=== PATIENT | female | born 1990 | race Caucasian/White ===

== ENCOUNTER 2016-11-09 17:14 | Emergency (ER) | payer OTHER ==
[~2016-11-09] VITALS: Ht 149.9 cm; Wt 77.1 kg
[~2016-11-09 17:14] MED LIST: KEFLEX500 M1 PO
[2016-11-09 17:30] VITALS: BP 116/70
[2016-11-09] MEDS ORDERED: PARAGARD T 3801 EACH (19:40)
--- NOTE | 2016-11-09 20:35 | RADIOLOGY REPORT ---
EXAMINATION: LEFT ANKLE SERIES LEFT FOOT SERIES CLINICAL INFORMATION: Fracture dislocation pain. COMPARISON: None. TECHNIQUE: 3 views of the left ankle 3 views left foot FINDINGS: Ankle: The bones joints and soft tissues are normal Left foot: The bones joints and soft tissues are normal IMPRESSION: Normal x-ray series of the left ankle and left foot
--- NOTE | 2016-11-09 20:42 | ED ANKLE/FOOT INJURY COMPLAINT ---
History of Present Illness General Chief Complaint: Lower Extremity Injury Stated Complaint: LEFT ANKLE INJURY Source: patient Exam Limitations: no limitations Vital Signs & Intake/Output Vital Signs & Intake/Output Vital Signs Date Time Temp Pulse Resp B/P Pulse O2 O2 Flow FiO2 Ox Delivery Rate 11/09 1730 98.2 79 16 116/70 97 Room Air Allergies Coded Allergies: NO KNOWN ALLERGIES (08/02/11) Reconcile Medications Copper (Paragard T 380-A) 380 SQUARE MM IUD CONTROL (Reported) Triage Note: RECEIVED 26 YO FEMALE C/O LEFT ANKLE PAIN. PT REPORTS SHE TWISTED IT ABOUT 12:30 TODAY. PT ABLE TO WEIGHT BEAR AND WALK WITHOUT PROBLEM. Triage Nurses Notes Reviewed? yes : No Patient currently breastfeeds: No HPI: This patient is a 26-year-old female who presented to the emergency department today for evaluation of left ankle pain. The patient reported that she tripped today and twisted her left ankle. She reported that when she walks or puts pressure on the area of the pain gets up to an 8 out of 10. It is throbbing and nonradiating. She denied any numbness or tingling in her extremities. The patient denied any pain when she is resting. The patient denied any knee pain or hip pain. Past History Travel History Traveled to [place] past 21 day No Medical History Any Pertinent Medical History? see below for history Neurological: NONE EENT: NONE Cardiovascular: NONE Respiratory: NONE Gastrointestinal: NONE Hepatic: NONE Renal: NONE Musculoskeletal: NONE Psychiatric: NONE Endocrine: NONE Blood Disorders: NONE Cancer(s): NONE BOAT OUTFITTER/Reproductive: NONE Surgical History Surgical History: non-contributory Psychosocial History What is your primary language Syrian Tobacco Use: Current Daily Use Daily Tobacco Use Amount/Type: => 5 Cigarettes daily Family History Hx Contributory? No Review of Systems Review of Systems Constitutional: Reports: no symptoms. EENTM: Reports: no symptoms. Respiratory: Reports: no symptoms. Cardiovascular: Reports: no symptoms. GI: Reports: no symptoms. Genitourinary: Reports: no symptoms. Musculoskeletal: Reports: see HPI. Skin: Reports: no symptoms. Neurological/Psychological: Reports: no symptoms. All Other Systems: Reviewed and Negative Physical Exam Physical Exam Leg/Knee/Thigh Left: normal range of motion, normal inspection Comments: Well-developed well-nourished person in no acute distress HEENT: Head normocephalic, moist mucous membranes Neck: Supple, no lymphadenopathy Back: Normal gait Respiratory: No respiratory distress. Speaking in full sentences Left foot/ankle: No edema or overlying erythema or ecchymosis. Full range of motion at the ankle. Tenderness to palpation over the lateral malleolus. No bony or muscular deformities appreciated. Dorsalis pedis and posterior tibialis pulses 2+ and strong. Capillary refill 2 seconds Neuro: Alert and oriented x3 Psych: Mood affect normal, normal memory normal judgment. Skin: Warm and dry, no rash on exposed skin Progress Differential Diagnosis: fracture, dislocation, sprain, contusion, compartmental syndrome Plan of Care: Orders Procedure Date/time Status Durable Medical Equipment 11/09 2042 Active URINE 11/10 1731 Complete Laboratory Tests 11/09/161935: Urine Test NEGATIVE Diagnostic Imaging: Viewed by Me: Radiology Read. Discussed w/RAD: Radiology Read. Radiology Impression: PATIENT: GINNY ACKERMAN PRESENT AGE: 26 PATIENT ACCOUNT NO: [id number] : 91 LOCATION: [facility] ORDERING PHYSICIAN: PK MANUEL PA-C SERVICE DATE: 11/09/16 EXAM TYPE: RAD - XRY-ANKLE 3 OR MORE VIEWS L; XRY-FOOT COMPLETE, LEFT EXAMINATION: LEFT ANKLE SERIES LEFT FOOT SERIES CLINICAL INFORMATION: Fracture dislocation pain. COMPARISON: None. TECHNIQUE: 3 views of the left ankle 3 views left foot FINDINGS: Ankle: The bones joints and soft tissues are normal Left foot: The bones joints and soft tissues are normal IMPRESSION: Normal x-ray series of the left ankle and left foot DICTATED BY: ALEXEY SORTO MD DATE/TIME DICTATED: 11/09/162030 PHOTOGRAPHER APPRENTICE:TARUN DATE/TIME TRANSCRIBED:11/09/162030 CONFIDENTIAL, DO NOT COPY WITHOUT APPROPRIATE AUTHORIZATION. <Electronically signed in Other Vendor System> SIGNED BY: ALEXEY SORTO MD 11/09/162034 Departure Departure Disposition: HOME OR SELF CARE Condition: Stable Clinical Impression Primary Impression: Ankle sprain Qualifiers: Encounter type: initial encounter Involved ligament of ankle: unspecified ligament Laterality: left Qualified Code: S93.402A - Sprain of unspecified ligament of left ankle, initial encounter Referrals: JOLANTA MATIAS,HEATH Nguyen (PCP/Family) JUDSON MATIAS,TRANG Additional Instructions: rest your ankle. Apply ice to the affected area for 15-20 minutes, 3-4 times a day. You may take [id number] ibuprofen for pain and inflammation. Use the crutches as needed. Weightbearing as tolerated. Use the Ej wrap provided to you here in the emergency department for extra compression, stability, and support of your ankle. Elevate your ankle and possible. If your symptoms persist after one week, please follow-up with the orthopedic physician is information has been provided to this packet for further evaluation. Return for any worsening symptoms or concerns. Departure Forms: Customer Survey General Discharge Information
== END 2016-11-09 20:55 ==
LOC: ERH 17:14
DX: S93.402A Sprain of unspecified ligament of left ankle, initial encounter (principal); X50.9XXA Other and unspecified overexertion or strenuous movements or postures, initial encounter; Y93.9 Activity, unspecified; Y92.9 Unspecified place or not applicable
CPT/HCPCS: 73610-LT; 73630-LT; 81025